=== PATIENT | female | born 1985 | race Caucasian/White ===

== ENCOUNTER → 2024-01-03 15:42 | Outpatient (CLI) | payer OTHER, MEDICAID, SELFPAY ==
--- NOTE | 2024-01-03 15:45 | DI.MRI.S_ITS ---
PROCEDURE: MR LUMBAR SPINE WO/W CON INDICATIONS: WORSENING CHRONIC LOW BACK PAIN W/STIFFNESS TECHNIQUE: Noncontrast sagittal T1 spin echo and T2 fast spin echo, sagittal STIR, axial T1 and T2 fast spin echo through the lumbar spine. In cases with scoliosis, additional coronal T2 fast spin echo may be performed. After the administration of contrast, sagittal and axial T1 spin echo with fat saturation through the lumbar spine. COMPARISON: None. FINDINGS: Mild straightening of the lumbar spine. Vertebral hemangioma in L1 vertebral body. No suspicious marrow replacing lesion. Multilevel disc bulge and disc desiccation. Vertebral body height of the lumbar spine is well maintained. Conus terminates at the level of T12-L1, and is unremarkable. Right neural foraminal stenosis: None. Left neural foraminal stenosis: None. Axial images: T12-L1: No central canal stenosis. Mild disc bulge. L1-2: No central canal stenosis. L2-3: No central canal stenosis. L3-4: No central canal stenosis. L4-5: No central canal stenosis. L5-S1: Small central disc extrusion, with mild inferior extension. No central canal stenosis. Visualized sacrum is unremarkable. No abdominal aortic aneurysm. IMPRESSION: 1. Small central disc extrusion at L5-S1 with mild inferior extension. No central canal or neural foraminal stenosis of the lumbar spine. Dictated by: Ccoo Casillas M.D. on 01/03/2024 at 18:15 Approved by: Coco Casillas M.D. on 01/03/2024 at 18:22
== END ==
LOC: MRI 15:44
PROVIDERS: Referring Provider Family Medicine; Visit Provider Family Medicine
DX: M51.17 Intervertebral disc disorders with radiculopathy, lumbosacral region (principal); M25.60 Stiffness of unspecified joint, not elsewhere classified; G89.29 Other chronic pain
CPT/HCPCS: 72158; A9579